=== PATIENT | female | born 1990 | race Caucasian/White ===

== ENCOUNTER 2018-01-29 11:56 | Inpatient (IN) | payer BC ==
[~2018-01-29] VITALS: Ht 167.6 cm; Wt 95.0 kg
--- NOTE | 2018-01-29 17:52 | PR ---
[facility] [address] [facility] [place] [facility] [place], [place] [address] Signed Progress Notes IP Datetime Report Generated by CPN: 01/29/2018 17:52 PROGRESS NOTES: [id number] Procedures: Artificial ROM Plan: Anticipate Vaginal Delivery VITAL SIGNS: [id number] Vital Signs: Reviewed; Within Normal Limits EXAM: [id number] Dilatation: 2.0 Effacement: 50 Station: -3 Uterine Contractions: every 2-3 minutes MEMBRANES: [id number] Membrane Status: Ruptured Amniotic Fluid Color: Clear ROM Note: AROM without difficulty, head well-applied to cervix. Comments: Start MagSO4 for seizure prophylaxis Fetus A: [id number] FHR Baseline: 130 Variability: Moderate 6-25bpm Accelerations: 15X15 Presentation: Vertex Fetus B: [id number] Signing Physician: Edith Pérez MD Copies: ~ *Electronically Signed* 01/29/18 1752 EDITH PÉREZ MD PATIENT NAME: IGGY CABRALES PROGRESS NOTE DATE OF : [birth year] PHYSICIAN: EDITH PÉREZ MD RPT #: [id number] REPORT IS CONFIDENTIAL AND NOT TO BE RELEASED WITHOUT AUTHORIZATION
--- NOTE | 2018-01-30 09:22 | PR ---
[facility] [address] [facility] [place], [place] [address] Signed Progress Notes IP Datetime Report Generated by CPN: 01/30/2018 09:22 PROGRESS NOTES: [id number] Impression: Normal progression of labor Procedures: Intrauterine Pressure Catheter; Scalp Electrode Plan: Continue present management; Anticipate Vaginal Delivery Other Plans: start Pitocin VITAL SIGNS: [id number] Vital Signs: Reviewed; Within Normal Limits EXAM: [id number] Dilatation: 9.5 Effacement: 100 Station: -1 Uterine Contractions: every 2-4 minutes MEMBRANES: [id number] Membrane Status: Ruptured Amniotic Fluid Color: Clear ROM Note: AROM without difficulty, head well-applied to cervix. Comments: Comfortable with Epidural, beginning to feel pressure. Fetus A: [id number] FHR Baseline: 125 Variability: Moderate 6-25bpm Accelerations: 15X15 Decelerations: Variable Presentation: Vertex Fetus B: [id number] Signing Physician: Rafael Pérez MD Copies: ~ *Electronically Signed* 01/30/18921 RAFAEL PÉREZ MD PATIENT NAME: STAIGLE,IGGY CARLOS PROGRESS NOTE DATE OF : 90 PHYSICIAN: RAFAEL PÉREZ MD RPT #: [id number] REPORT IS CONFIDENTIAL AND NOT TO BE RELEASED WITHOUT AUTHORIZATION
--- NOTE | 2018-02-01 08:37 | PR ---
[facility] [address] [facility] [place], [place] [address] Signed PP Progress Notes Datetime Report Generated by CPN: 02/01/2018 08:37 SUBJECTIVE: [id number] Pain: Within normal limits Nausea/Vomiting: Denies Vital Signs: [id number] Vital Signs: Reviewed; Within Normal Limits Notable Details: PP Hgb/Hct = 11.2/32.9 EXAM: [id number] Abdomen/Uterus: Normal Lochia: Normal Extremities: Normal Exam Comments: Urine dilute, clear, large amount IMPRESSION/PLAN/PROCEDURES: [id number] Impression: Normal progression; Induced Hypertension Plan: Discharge Other Plans: D/C MagSO4 Procedures: None Progress Notes: Doing well, without complaint, would like to go home. Signing Physician: Edith Pérez MD Copies: ~ *Electronically Signed* 02/01/18 0837 EDITH PÉREZ MD PATIENT NAME: IGGY CABRALES PROGRESS NOTE DATE OF : 90 PHYSICIAN: EDITH PÉREZ MD RPT #: [id number] REPORT IS CONFIDENTIAL AND NOT TO BE RELEASED WITHOUT AUTHORIZATION
== END 2018-02-01 12:30 | disposition home or self-care (01) | DRG 775 ==
LOC: FBCO 11:56 → FBC 14:54
PROVIDERS: ADMIT General Practice
PROC: 10907ZC Drainage of Amniotic Fluid, Therapeutic from Products of Conception, Via Natural or Artificial Opening (ICD-10-PCS; 2018-01-29)
PROC: 10E0XZZ Delivery of Products of Conception, External Approach (ICD-10-PCS; principal; 2018-01-30)
PROC: 0UQGXZZ Repair Vagina, External Approach (ICD-10-PCS; 2018-01-30)
PROC: 10H07YZ Insertion of Other Device into Products of Conception, Via Natural or Artificial Opening (ICD-10-PCS; 2018-01-30)
PROC: 00HU33Z Insertion of Infusion Device into Spinal Canal, Percutaneous Approach (ICD-10-PCS; 2018-01-30)
PROC: 3E0R3BZ Introduction of Anesthetic Agent into Spinal Canal, Percutaneous Approach (ICD-10-PCS; 2018-01-30)
DX: O14.94 Unspecified pre-eclampsia, complicating childbirth (principal); O26.833 Pregnancy related renal disease, third trimester; O60.14X0 Preterm labor third trimester with preterm delivery third trimester, not applicable or unspecified; O76 Abnormality in fetal heart rate and rhythm complicating labor and delivery; O71.4 Obstetric high vaginal laceration alone; R34 Anuria and oliguria; Z37.0 Single live birth; Z3A.36 36 weeks gestation of pregnancy
CPT/HCPCS: 01960; 36415; 59025; 82565; 82570; 83735; 84156; 84450; 84520; 84550; 85025; 85027; J2405; J2550; J2590; J2765; J2795; J3475; J7120